=== PATIENT | female | born 1995 | race Caucasian/White ===

== ENCOUNTER 2019-06-28 10:31 | Emergency (ER) | payer OTHER ==
[~2019-06-28] VITALS: Ht 157.5 cm; Wt 80.0 kg
[2019-06-28 10:42] VITALS: BP 142/91; PULSE 84; RESP 18; Ht 157.5 cm; Wt 80.0 kg
== END 2019-06-28 14:59 | disposition home or self-care (01) ==
LOC: FTE 10:31
DX: O26.891 Other specified pregnancy related conditions, first trimester (principal); R10.2 Pelvic and perineal pain; Z3A.12 12 weeks gestation of pregnancy
CPT/HCPCS: 36415; 76801; 81001; 84702; 85025; 86900; 86901; Z7502; 81003